=== PATIENT | male | born 1955 | race Caucasian/White ===

== ENCOUNTER 2022-06-06 08:35 | Inpatient (IN) | payer MEDICARE, OTHER ==
[~2022-06-06] VITALS: Ht 172.7 cm; Wt 71.7 kg
--- NOTE | 2022-06-06 08:42 | NUR ---
To ER bed 4, [id number] for witnessed seizure like activity while eating breakfast assisted to ground. 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
[2022-06-06] MEDS ORDERED: LORAZEPAM 1 MG TABLET ONE (08:52)
[2022-06-06] MEDS ORDERED: LORAZEPAM 1 MG TABLET PO ONE (09:00)
[2022-06-06] MEDS ORDERED: IV NS 0.9% 1,000 ML BAG IV ONE (09:00)
--- NOTE | 2022-06-06 09:05 | NUR ---
radiology at bedside for chest xray.
[2022-06-06] MEDS: LEVETIRACETAM (500MG) 1,000 MG in IV NS 0.9% 100 ML IV SCH ×2 (09:12→23:02)
[2022-06-06 09:23] LABS: BASOPHILS # (AUTO) 0.1 K/uL (0.0-0.2); BASOPHILS % (AUTO) 0.7 % (0.0-2.0); HEMATOCRIT 36 % (39-51); HEMOGLOBIN 11.7 g/dL (13.5-17.5); LYMPHOCYTES # (AUTO) 2.1 K/uL (0.8-4.8); LYMPHOCYTES % (AUTO) 24.8 % (20.0-44.0); MEAN CORPUSCULAR HGB CONC 33 g/dl (31.0-36.0); MEAN CORPUSCULAR VOLUME 90 fL (80-96); MONOCYTES # (AUTO) 0.5 K/uL (0.1-1.30); MONOCYTES % (AUTO) 6.1 % (2.0-12.0); NEUTROPHILS # (AUTO) 5.1 K/uL (1.8-8.9); NEUTROPHILS % (AUTO) 60.4 % (43.0-81.0); PLATELET COUNT (AUTO) 296 K/uL (150-450); RED BLOOD CELL COUNT(AUTO) 3.95 MIL/uL (4.5-6.0); WHITE BLOOD COUNT (AUTO) 8.4 K/uL (4.3-11.0)
[2022-06-06] MEDS ORDERED: LORAZEPAM INJ 2 MG/ML VIAL IV ONE (09:30)
[2022-06-06 09:34] LABS: CALCIUM, SERUM 8.6 mg/dL (8.5-10.1); CARBON DIOXIDE 24 mmol/L (21-32); CHLORIDE 102 mmol/L (98-107); CREATININE 1.4 mg/dL (0.6-1.3); GLUCOSE 127 mg/dL (74-106); POTASSIUM 4.3 mmol/L (3.5-5.1); SODIUM SERUM 137 mmol/L (136-145); UREA NITROGEN, BLOOD 34 mg/dL (7-18)
[2022-06-06 09:44] LABS: ALANINE AMINOTRANSFERASE 15 U/L (12-78); ALCOHOL, BLOOD < 3 mg/dL (0-0); ALKALINE PHOSPHATASE 100 U/L (46-116); ASPARTATE AMINOTRANSFERASE 13 U/L (15-37); BILIRUBIN,DIRECT 0.1 mg/dL (0.0-0.2); BILIRUBIN,TOTAL 0.2 mg/dL (0.2-1.0); TOTAL PROTEIN, SERUM 7.8 g/dL (6.4-8.2)
--- NOTE | 2022-06-06 10:09 | NUR ---
STILL UNABLE TO PROVIDE URINE AT THIS TIME
--- NOTE | 2022-06-06 10:17 | NUR ---
URINE COLLECTED AND SENT TO LAB
--- NOTE | 2022-06-06 11:24 | NUR ---
PER MARCY WATER RESOURCES ENGINEER UPON DISCHARGED PT WILL GO TO [address] [id number] [facility] [facility] [place],
--- NOTE | 2022-06-06 11:40 | NUR ---
COVID SWAB DONE AND SENT TO LAB
--- NOTE | 2022-06-06 12:17 | NUR ---
MOVE SHEET SUBMITTED.
--- NOTE | 2022-06-06 13:06 | NUR ---
DR HI AT BEDSIDE
[2022-06-06] MEDS ORDERED: HYDROCODONE/APAP 5/325MG TABLET PO PRN ×2 (14:00→14:30)
[2022-06-06] MEDS ORDERED: LORAZEPAM INJ 2 MG/ML VIAL IV PRN (14:00)
[2022-06-06] MEDS ORDERED: MAG HYDROX/AL HYDROX/SIMETH 30 ML UDC PO PRN (14:00)
[2022-06-06] MEDS ORDERED: MAGNESIUM HYDROXIDE 30 ML UDC PO PRN (14:00)
[2022-06-06] MEDS ORDERED: ACETAMINOPHEN 325 MG TABLET PO PRN (14:00)
[2022-06-06] MEDS ORDERED: ONDANSETRON HCL/PF 4 MG/2 ML VIAL IVP PRN (14:00)
[2022-06-06] MEDS ORDERED: Z GUARD REMEDY 4 OZ OINT TP PRN (14:00)
--- NOTE | 2022-06-06 14:01 | NUR ---
BED 313-2
--- NOTE | 2022-06-06 14:14 | NUR ---
REPORT GIVEN TO JOSEF MICHEL FOR LEE
--- NOTE | 2022-06-06 14:31 | NUR ---
TRANSFERRED TO BED 313 IN STABLE CONDITION
[2022-06-06] MEDS: IV NS 0.9% 1,000 ML IV PRN (16:44)
--- NOTE | 2022-06-06 18:45 | NUR ---
IMPREGNATOR AND DRIER HELPERSECRETARIAL TEACHER NOTE PATIENT RECEIVED ON UNIT @ 1430 FROM ED VIA GURNEY. PATIENT ABLE TO SCOOT FROM GURNEY TO BED WITH MINIMUM ASSIST. IV ACCESS TO RFA INTACT AND PATENT WITH NS CURRENTLY RUNNING CONTINUOUSLY @ 75ML/HR. PATIENT TOLERATED WELL. PATIENT REFUSED SKIN ASSESSMENT UPON ADMISSION WITH MULTIPLE ATTEMPTS MADE; WILL ENDORSE TO ONCOMING NURSE. PATIENT VERBAL, HOWEVER REFUSES TO SPEAK UPON ASSESSMENT. NO SEIZURE ACTIVITY ON SHIFT. TOLERATED MEALS WELL. SAFETY MEASURES IN PLACE. BED LOW AND LOCKED, SIDERAIL UP X3 AND PADDED FOR PATIENT PROTECTION. CALL LIGHT WITHIN REACH. WILL CONTINUE TO MONITOR.
--- NOTE | 2022-06-06 19:30 | NUR ---
noc rn opening received patient in bed, a/ox3-4, asking for food. given snacks. no s/s of apparent distress on room air. denies pain at this time. tele monitor reading sr with 75bpm. IV ns running 75mls/hr at this time. seizure precaution in place. call light within reach and re-oriented and encouraged with the use of call light. will continue with plan of care for patient.
[2022-06-06 20:00] VITALS: BP 103/64
[2022-06-06] MEDS ORDERED: LEVETIRACETAM (500MG) 500 MG/5 ML VIAL IV ONE (22:42)
[2022-06-07] VITALS: BP 97/60
--- NOTE | 2022-06-07 01:02 | NUR ---
ernestina hanged late because medication was not in the med room. had Nursing supervisor slate splitting brought it up.
--- NOTE | 2022-06-07 06:30 | NUR ---
noc rn note refused blood draw at this time and said to come back later.
[2022-06-07] MEDS: IV NS 0.9% 1,000 ML IV PRN (06:34)
[2022-06-07] MEDS ORDERED: PANTOPRAZOLE 40 MG TABLET.DR PO SCH (07:30)
--- NOTE | 2022-06-07 07:55 | NUR ---
noc rn closing report given to Elisa for continuity of patient care.
[2022-06-07 08:00] VITALS: BP 109/60
--- NOTE | 2022-06-07 08:02 | NUR ---
OPERATIONS ADVISOR OPENING NOTES: RECEIVED PT IN BED, A/O X3, ABLE TO VERBALIZE NEEDS. NO S/S OF SOB AND DISTRESS, ON RA TOLERATING WELL. DENIES PAIN AT THIS TIME. TELE MONITOR READING SINUS BRADYCARDIA, HR- 56. IV ACCESS @ L FA# 20 RUNNING NS @ 75ML/HR. SAFETY MEASURES IN PLACE, CALL LIGHT AND TABLE WITHIN REACH, WILL CONT WITH PLAN OF CARE DURING SHIFT.
[2022-06-07 09:46] LABS: BASOPHILS % (AUTO) 0.7 % (0.0-2.0); EOSINOPHILS % (AUTO) 8.3 % (0.0-6.0); HEMATOCRIT 32 % (39-51); HEMOGLOBIN 10.9 g/dL (13.5-17.5); LYMPHOCYTES # (AUTO) 1.4 K/uL (0.8-4.8); LYMPHOCYTES % (AUTO) 19.2 % (20.0-44.0); MEAN CORPUSCULAR HGB CONC 34 g/dl (31.0-36.0); MEAN CORPUSCULAR VOLUME 90 fL (80-96); MONOCYTES # (AUTO) 0.5 K/uL (0.1-1.30); MONOCYTES % (AUTO) 7.1 % (2.0-12.0); NEUTROPHILS # (AUTO) 4.6 K/uL (1.8-8.9); NEUTROPHILS % (AUTO) 64.7 % (43.0-81.0); PLATELET COUNT (AUTO) 257 K/uL (150-450); RED BLOOD CELL COUNT(AUTO) 3.59 MIL/uL (4.5-6.0); WHITE BLOOD COUNT (AUTO) 7.2 K/uL (4.3-11.0)
[2022-06-07 10:01] LABS: CALCIUM, SERUM 8.1 mg/dL (8.5-10.1); CREATININE 1.1 mg/dL (0.6-1.3); MAGNESIUM 1.8 mg/dL (1.8-2.4); PHOSPHORUS 3.3 mg/dL (2.5-4.9); POTASSIUM 4.2 mmol/L (3.5-5.1)
[2022-06-07] MEDS ORDERED: LEVETIRACETAM (250 MG) 250 MG TABLET PO SCH (10:05)
[2022-06-07 12:00] VITALS: BP 109/64
--- NOTE | 2022-06-07 16:19 | NUR ---
ASSEMBLER TRUCK TRAILERDIRECTOR PHYSICAL THERAPY NOTES: PT CLINICALLY STABLE FOR DISCHARGE. VITALS WNL, BP- 111/62, HR- 68, TEMP, 97.9, RR- 18, O2 SAT 99% ON RA. NO S/S OF SOB OR ACUTE DISTRESS, DENIES PAIN AT THE MOMENT. DC INSTRUCTIONS, BELONGINGS AND NEW PRESCRIPTIONS DISCUSSED WITH PT. PT VERBALIZED UNDERSTANDING, DOCUMENTS SIGNED. IV ACCESS, ID BAND AND TELE BOX REMOVED. REPORT GIVEN BY PHONE TO ANAND LOWRY AT [facility]. REPORT GIVEN TO LIZETH HENRY AT BEDSIDE. PT TRANSPORTATION IS [facility], RUN # [id number], UNIT# [id number].
== END 2022-06-07 15:30 | DRG 100 ==
LOC: ER 08:37 → TELE 14:17
DX: R56.9 Unspecified convulsions (principal); I62.03 Nontraumatic chronic subdural hemorrhage; Z20.822 Contact with and (suspected) exposure to COVID-19; Y90.0 Blood alcohol level of less than 20 mg/100 ml; D64.9 Anemia, unspecified; I10 Essential (primary) hypertension; Z88.6 Allergy status to analgesic agent; Z88.8 Allergy status to other drugs, medicaments and biological substances; F10.11 Alcohol abuse, in remission; G93.89 Other specified disorders of brain; Z98.2 Presence of cerebrospinal fluid drainage device; R79.89 Other specified abnormal findings of blood chemistry
CPT/HCPCS: 36415; 70450-TC; 71045-TC; 80048-TC; 80076-TC; 83735-TC; 84100-TC; 84484-TC; 85025-TC; 87081-TC; 97116-TC; 97530-TC; C9803; G0378; G0480; J1953; J7030; J7050